=== PATIENT | female | born 1940 | race Hispanic/Latino ===

== ENCOUNTER 2016-08-25 17:03 | Inpatient (IN) | payer MEDICARE, BC ==
[2016-08-25] MEDS ORDERED: Sodium Chloride 0.9% 250 ML IV STA (18:06)
[2016-08-25] MEDS ORDERED: Iohexol 240 (50 ml) PO ONE (18:09)
--- NOTE | 2016-08-25 18:35 | ED PDOC ---
HPI: Abdomen Time Seen by Provider: 08/25/16 17:29 Chief Complaint (Nursing): Abdominal Pain Chief Complaint (Provider): Dehydration/Decreased PO Intake History Per: Patient History/Exam Limitations: no limitations Onset/Duration Of Symptoms: Days (x4) Outside of [place] travel?: No Current Symptoms Are (Timing): Still Present Associated Symptoms: Diarrhea (multiple episodes, watery/occasionally bloody (5 days [employer]OOFING APPLIC[employer], since resolved with minimal stool output since)), Loss Of Appetite ( has reportedly not eaten/drank anything x5d), Other (shortness of breath ( especially w/exertion), generalized weakness). denies: Vomiting, Chest Pain Additional Complaint(s): Lisseth Ma is a 75 year old female, with a past medical history inclusive of CAD (s/p coronary stent placement), HTN, COPD, type II diabetes and hypothyroidism, who presents to the ED on 08/25/16, as per the recommendation of her PMD Dr. Decker, for the evaluation/treatment of possible dehydration. Patient reports that she has been experiencing both decreased appetite and PO intake over the past 4 days, stating that symptoms had initially began 5 days ago with a fever and multiple episodes of watery and occasionally bloody diarrhea. While fever and diarrhea have since resolved, patient has had minimal stool output since and has not had anything to eat/ drink since symptom onset. Associated nausea and generalized weakness also reported in addition to some shortness of breath, especially upon exertion. Denies chest pain, vomiting, urinary complaints or additional episodes of bloody stool. 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 PMD: Evaristo Decker Past Medical History Reviewed: Historical Data, Nursing Documentation, Vital Signs Vital Signs: Last Vital Signs Temp 97.5 F L 08/28/16 12:27 Pulse 68 08/28/16 12:27 Resp 18 08/28/16 12:27 BP 148/75 08/28/16 12:27 Pulse Ox 97 08/28/16 12:27 - Medical History PMH: CAD, COPD, Diabetes (type II), HTN, Hypothyroidism - Surgical History Surgical History: Coronary Stent - Family History Family History: States: Diabetes, Hypertension - Social History Current smoker - smoking cessation education provided: No Alcohol: None Drugs: Denies - Home Medications Home Medications: Ambulatory Orders Medication Instructions Recorded Amlodipine Bes/Olmesartan Med 1 tab PO DAILY 08/25/16 [Amlodipine-Olmesartan 10-40 mg] Ergocalciferol (Vitamin D2) 1 cap PO QWK 08/25/16 [Vitamin D2] Famotidine [Pepcid] 40 mg PO DAILY 08/25/16 Ferrous Sulfate 325 mg PO BID 08/25/16 Fluticasone/Vilanterol [Breo 1 puff INH DAILY 08/25/16 Ellipta 200-25 Mcg INH] Levothyroxine [Synthroid] 25 mcg PO DAILY 08/25/16 Simvastatin [Zocor] 20 mg PO DAILY 08/25/16 Dabigatran [Pradaxa] 150 mg PO BID #60 cap 08/28/16 diltiaZEM [Cardizem] 30 mg PO BID #60 tab 08/28/16 - Allergies Allergies/Adverse Reactions: Allergies Allergy/AdvReac Type Severity Reaction Status Date / Time No Known Allergies Allergy Verified 08/25/16 17:14 Review of Systems ROS Statement: Except As Marked, All Systems Reviewed And Found Negative Constitutional: Positive for: Fever (5 days ago, since resolved), Weakness ( generalized) Cardiovascular: Negative for: Chest Pain Respiratory: Positive for: Shortness of Breath, SOB with Exertion Gastrointestinal: Positive for: Nausea, Diarrhea (multiple episodes, watery and ocasionally bloody, since resolved and since has had minimal stool output), Other (decreased appetite/PO intake). Negative for: Vomiting Genitourinary Female: Negative for: Dysuria, Frequency, Hematuria Physical Exam - Reviewed Nursing Documentation Reviewed: Yes Vital Signs Reviewed: Yes - Physical Exam Appears: Positive for: Non-toxic, No Acute Distress (tired appearing) Head Exam: Positive for: ATRAUMATIC, NORMOCEPHALIC Skin: Positive for: Warm, Dry, Pallor Eye Exam: Positive for: Normal appearance, PERRL ENT: Positive for: Pharynx Is (clear), Other (tacky mucous membranes) Cardiovascular/Chest: Positive for: Edema (b/l LE, nonpitting), Irregularly Irregular (tachycardic). Negative for: Murmur Respiratory: Positive for: Rhonchi (faint/diffuse b/l). Negative for: Respiratory Distress Gastrointestinal/Abdominal: Positive for: Normal Exam, Soft. Negative for: Tenderness ((-) Foster's/McBurney's), Mass, Guarding, Rebound Extremity: Positive for: Normal ROM Neurologic/Psych: Positive for: Alert, Oriented - Laboratory Results Result Diagrams: 08/25/16 18:15 08/25/16 18:15 - ECG ECG Rhythm: Positive for: Atrial Fibrillation (w/RVR), Right Bundle Branch Block Rate: 123 O2 Sat by Pulse Oximetry: 98 (RA) Pulse Ox Interpretation: Normal - Critical Care Total Time (In Min): 30 Documented Critical Care: Time excludes all time spent performint seperately billable procedures Medical Decision Making Medical Decision Makin:29 EKG shows atrial fibrillation at 123bpm with RVR and RBBB. Discussed case with Dr. Decker, patient has no previous history of a-fib. Initial Impression: new onset a-fib, abdominal discomfort, dehydration Differential diagnoses include but are not limited to mesenteric ischemia, CHF, electrolyte abnormality, ACS, colitis Initial Plan: * CT A/P w/PO contrast only * CXR * Blood Type/Screen * Labs * Lactic Acid, Plasma * Lipase * Magnesium * Phosphorus * Troponin I * PTT * PT * Glucose/Blood/POC * Udip * Urinalysis * Blood Culture * IV NS 250ml at 250mls/hr * Reevaluation Patient will be hospitalized, pending results of ED workup. Trop negative. Probnp elevated. Otherwise no clinically significant lab abnormalities. Pt's heart rate improved. ELIDA pt and family findings and plan of care ELIDA Decker again and Dr Terry Lozenge Maker. Scribe Attestation: Documented by Latonya Cabrera, acting as a scribe for Dia Parsons MD. Provider Scribe Attestation: All medical record entries made by the Scribe were at my direction and personally dictated by me. I have reviewed the chart and agree that the record accurately reflects my personal performance of the history, physical exam, medical decision making, and the department course for this patient. I have also personally directed, reviewed, and agree with the discharge instructions and disposition. Disposition - Clinical Impression Clinical Impression: Atrial fibrillation Counseled Patient/Family Regarding: Studies Performed, Diagnosis - Disposition Disposition Time: 17:30 Condition: FAIR - Pt Status Changed To: Hospital Disposition Of: Inpatient - Admit Certification Admit to Inpatient:: After my assessment, the patient will require hospitalization for at least two midnights. This is because of the severity of symptoms shown, intensity of services needed, and/or the medical risk in this patient being treated as an outpatient. - POA Present On Arrival: None
[2016-08-25 18:39] LABS: BASO % 0.5 % (0.0-2.0); EOS # 0.2 K/uL (0.0-0.7); EOS % 2.4 % (0.0-4.0); HEMATOCRIT 49.5 % (34.0-47.0); LYMPH # 1.1 K/uL (1.0-4.3); LYMPH % 13.5 % (20.0-40.0); MEAN CELL VOLUME 90.1 fl (81.0-99.0); MEAN CORPUSCULAR HEMOGLOBIN 29.2 pg (27.0-31.0); MEAN CORPUSCULAR HGB CONC 32.4 g/dL (33.0-37.0); MEAN PLATELET VOLUME 8.8 fl (7.2-11.7); MONO # 0.5 K/uL (0.0-0.8); MONO % 6.4 % (0.0-10.0); NEUT # 6.4 K/uL (1.8-7.0); NEUT % 77.2 % (50.0-75.0); NRBC % 0.3 % (0.0-0.0); RED CELL DISTRIBUTION WIDTH 14.3 % (11.5-14.5); WHITE BLOOD COUNT 8.4 K/uL (4.8-10.8)
[2016-08-25 18:56] LABS: ALKALINE PHOSPHATASE 63 U/L (38-126); ALT/SGPT 32 U/L (9-52); AST/SGOT 17 U/L (14-36); BILIRUBIN,TOTAL 0.6 mg/dl (0.2-1.3); BLOOD UREA NITROGEN 20 mg/dl (7-17); CALCIUM 9.1 mg/dL (8.4-10.2); CARBON DIOXIDE 23 mmol/L (22-30); CHLORIDE 100 mmol/L (98-107); GFR AFRICAN-AMERICAN > 60; GLUCOSE,RANDOM 135 mg/dL (65-105); LIPASE 51 U/L (23-300); MAGNESIUM 1.8 MG/DL (1.6-2.3); PARTIAL THROMBOPLASTIN TIME 24.6 SECONDS (23.3-32.5); PHOSPHOROUS 3.7 mg/dl (2.5-4.5); SODIUM 133 mmol/l (132-148); TOTAL PROTEIN 6.8 G/DL (6.3-8.2)
[2016-08-25] MEDS ORDERED: Iohexol 240 (50 ml) ONE (19:07)
--- NOTE | 2016-08-25 22:08 | CT ---
EXAM: CT Abdomen and Pelvis With Intravenous Contrast. CLINICAL HISTORY: 75 years old, female; Pain; Abdominal pain; Generalized; Prior surgery; Surgery date: 6+ months; Surgery type: Hysterectomy. Ca vulva; Additional info: Abd pain dehydration TECHNIQUE: Axial computed tomography images of the abdomen and pelvis with intravenous contrast. This CT exam was performed using one or more of the following dose reduction techniques: automated exposure control, adjustment of the mA and/or kV according to patient size, and/or use of iterative reconstruction technique. Coronal and sagittal reformatted images were created and reviewed. COMPARISON: No relevant prior studies available. FINDINGS: Lower thorax: Small pericardial effusion. Mild atelectasis/scarring. RIGHT lower lobe calcified granuloma. Small hiatal hernia. ABDOMEN: Liver: Fatty infiltration. Gallbladder and bile ducts: No calcified stones. No ductal dilation. Pancreas: No ductal dilation. No mass. Spleen: No splenomegaly. Adrenals: Mild hypertrophy of adrenal glands. Kidneys and ureters: Few probable renal cysts. Few too small to characterize lesions within kidneys. No renal calculi. No hydronephrosis. Stomach and bowel: Scattered diverticula within colon. Moderate mural thickening of distal transverse, descending, proximal sigmoid colon. Mild stranding within adjacent fat. No obstruction. Appendix: No findings to suggest acute appendicitis. PELVIS: Bladder: Unremarkable. Reproductive: Hysterectomy. ABDOMEN and PELVIS: Intraperitoneal space: No significant fluid collection. No free air. Bones/joints: Degenerative changes of spine. No acute fracture. Soft tissues: 3.0 x 1.6 x 1.8 cm soft tissue nodule LEFT anterior pelvic wall. Vasculature: Moderate atherosclerotic disease of visualized arteries. 4.1 cm infrarenal abdominal aortic aneurysm. No rupture. Lymph nodes: No pathologically enlarged lymph nodes. IMPRESSION: 1. Colitis, nonspecific. Consider inflammatory, infectious, or ischemic etiologies. 2. Abdominal aortic aneurysm. Followup as warranted. 3. Soft tissue nodule LEFT anterior pelvic wall. Clinical correlation is needed. 4. Incidental/non-acute findings are described above.
[2016-08-26 00:21] LABS: RBC URINE 3 /hpf (0-3); URINE BACTERIA RARE (<OCC); URINE BILIRUBIN NEGATIVE (NEGATIVE); URINE BLOOD SMALL (NEGATIVE); URINE COLOR YELLOW (YELLOW); URINE GLUCOSE (UA) NEG (Normal); URINE KETONE NEGATIVE (NEGATIVE); URINE LEUKOCYTE ESTERASE LARGE Leu/uL (Negative); URINE PROTEIN NEGATIVE (NEGATIVE); URINE UROBILINOGEN 0.2-1.0 mg/dL (0.2-1.0); WBC URINE 29 /hpf (0-5)
[2016-08-26] MEDS ORDERED: Enoxaparin 40 mg Syringe SC SCH (09:00)
[2016-08-26] MEDS: Levothyroxine 25 MCG TAB PO SCH (09:51)
--- NOTE | 2016-08-26 10:50 | RAD ---
HISTORY: sob COMPARISON: 2007 FINDINGS: LUNGS: No active pulmonary disease. PLEURA: No significant pleural effusion identified, no pneumothorax apparent. CARDIOVASCULAR: Heart is normal in size. There is atherosclerotic change of the aorta without aneurysmal dilatation. No CHF is seen. OSSEOUS STRUCTURES: No significant abnormalities. VISUALIZED UPPER ABDOMEN: Normal. OTHER FINDINGS: None. IMPRESSION: No focal infiltrate. No CHF. Limited exam due to underexposure.
--- NOTE | 2016-08-26 12:08 | CP.PCM.CON ---
History of Present Illness - History of Present Illness History of Present Illness: CC: Weakness. HPI: This is a pleasant 75 year old female with a PMH of CAD, HTN, DM and COPD who is admitted by her PMD for dehydration. She was evaluated by Dr. Decker earlier this week for several days of diarrhea, weakness, fatigue and dyspnea and was advised admission and workup given her dehydrated condition. She was noted to have new onset atrial fibrillation with RVR and IV cardizem was started for rate control. An ECG revealed afib at 123 BPM, RBBB, troponins negative x2 and an Echo revealed normal LVEF, moderate , INDY=1.34 cm2, peak gradient 24 mmHg, mean 15 mmHg. The patient denies chest pain or palpitation but has lower extremity edema. She has been compliant with her medications and diet. Review of Systems - Constitutional Constitutional: Fatigue, Lethargy, Weakness - EENT Additional comments: Negative. - Cardiovascular Cardiovascular: Dyspnea, Dyspnea on Exertion - Respiratory Respiratory: Dyspnea, Dyspnea on Exertion - Gastrointestinal Gastrointestinal: Diarrhea - Genitourinary Additional comments: Negative. - Musculoskeletal Musculoskeletal: Muscle Weakness, Myalgias - Integumentary Integumentary: Swelling - Neurological Additional comments: Negative. - Psychiatric Additional comments: Negative. - Endocrine Endocrine: Fatigue - Hematologic/Lymphatic Additional comments: Negative. Past Patient History - Past Medical History & Family History Past Medical History?: Yes - Past Social History Smoking Status: Former Smoker - CARDIAC Hx Cardiac Disorders: Yes Hx Circulatory Problems: Yes Hx Hypercholesterolemia: Yes Hx Hypertension: Yes - PULMONARY Hx Asthma: Yes Hx Chronic Obstructive Pulmonary Disease (COPD): Yes - NEUROLOGICAL Hx Neurological Disorder: No - HEENT Hx HEENT Problems: No - RENAL Hx Chronic Kidney Disease: No - ENDOCRINE/METABOLIC Hx Endocrine Disorders: Yes Hx Diabetes Mellitus Type 2: Yes - HEMATOLOGICAL/ONCOLOGICAL Hx Blood Disorders: Yes - MUSCULOSKELETAL/RHEUMATOLOGICAL Hx Falls: No - GASTROINTESTINAL Hx Gastrointestinal Disorders: No - GENITOURINARY/GYNECOLOGICAL Hx Cervical Cancer: Yes - PSYCHIATRIC Hx Substance Use: No - SURGICAL HISTORY Hx Cardiac Catheterization: Yes Hx Coronary Stent: Yes Hx Hysterectomy: Yes - ANESTHESIA Hx Anesthesia: Yes Hx Anesthesia Reactions: No Meds Allergies/Adverse Reactions: Allergies Allergy/AdvReac Type Severity Reaction Status Date / Time No Known Allergies Allergy Verified 08/25/16 17:14 - Medications Medications: Current Medications Aspirin (Aspirin Chewable) 81 mg PO DAILY [facility] Last Admin: 08/26/16 09:47 Dose: 81 mg Atorvastatin Calcium (Lipitor) 10 mg PO DAILY [facility] Last Admin: 08/26/16 09:48 Dose: 10 mg Clopidogrel Bisulfate (Plavix) 75 mg PO DAILY [facility] Last Admin: 08/26/16 09:50 Dose: 75 mg Enoxaparin Sodium (Lovenox) 40 mg SC DAILY [facility] PRN Reason: Protocol Last Admin: 08/26/16 09:50 Dose: 40 mg Ergocalciferol (Drisdol 50,000 Intl Units Cap) 1 cap PO QWK [facility] Ferrous Sulfate (Feosol) 325 mg PO BID [facility] Last Admin: 08/26/16 09:47 Dose: 325 mg Diltiazem HCl 125 mg/ Sodium (Chloride) 125 mls @ 5 mls/hr IV .Q24H ONE; 5 MG/ HR PRN Reason: Protocol Stop: 08/26/16 19:28 Last Admin: 08/25/16 21:16 Dose: 5 mls/hr Levothyroxine Sodium (Synthroid) 25 mcg PO DAILY@0630 [facility] Last Admin: 08/26/16 09:51 Dose: 25 mcg Metoprolol Tartrate (Lopressor) 25 mg PO BID [facility] Last Admin: 08/26/16 09:48 Dose: 25 mg Physical Exam - Constitutional Appears: Well, No Acute Distress - Head Exam Head Exam: NORMAL INSPECTION - Eye Exam Eye Exam: EOMI, Normal appearance - ENT Exam ENT Exam: Mucous Membranes Moist - Neck Exam Neck exam: Positive for: Normal Inspection - Respiratory Exam Respiratory Exam: Clear to Auscultation Bilateral, NORMAL BREATHING PATTERN - Cardiovascular Exam Cardiovascular Exam: REGULAR RHYTHM, +S1, +S2, Systolic Murmur - GI/Abdominal Exam GI & Abdominal Exam: Normal Bowel Sounds, Soft - Rectal Exam Rectal Exam: Deferred - Back Exam Back exam: NORMAL INSPECTION - Neurological Exam Neurological exam: Alert, CN II-XII Intact, Oriented x3 - Psychiatric Exam Psychiatric exam: Normal Affect, Normal Mood - Skin Skin Exam: Dry, Intact, Normal Color, Warm Results - Vital Signs Recent Vital Signs: Last Vital Signs Temp 98.5 F 08/26/16 09:28 Pulse 68 08/26/16 09:48 Resp 20 08/26/16 09:28 BP 123/81 08/26/16 09:48 Pulse Ox 97 08/26/16 09:28 - Labs Result Diagrams: 08/25/16 18:15 08/25/16 18:15 Labs: Laboratory Results - last 24 hr 08/25/16 08/26/16 08/26/16 23:40 05:43 06:54 POC Glucose (mg/dL) 138 H Troponin I 0.0190 Urine Color Yellow Urine Clarity Slighty-cloudy Urine pH 5.0 Ur Specific [place] 1.015 Urine Protein Negative Urine Glucose (UA) Neg Urine Ketones Negative Urine Blood Small Urine Nitrate Negative Urine Bilirubin Negative Urine Urobilinogen 0.2-1.0 Ur Leukocyte Esterase Large Urine RBC (Auto) 3 Urine Microscopic WBC 29 H Ur Squamous Epith Cells 6 H Urine Bacteria Rare Assessment & Plan - Assessment and Plan (Free Text) Assessment: New onset atrial fibrillation, now rate and rhythm controlled. Dehydration. Diarrhea. Hypertension. CAD, asymptomatic. Moderate aortic stenosis. DM. Dyslipidemia. COPD. Plan: Discontinue IV cardizem. Start PO cardizem. Discontinue beta jia given COPD. Pradaxa given high CHADS2 score. Monitor telemetry. Discontinue aspirin and clopidogrel. Physical therapy. Case d/w Dr. Decker who agrees with the above recommendations. - Date & Time Date: 08/26/16 Time: 18:39
[2016-08-27] MEDS: Levothyroxine 25 MCG TAB PO SCH (06:29)
--- NOTE | 2016-08-27 06:55 | CARD ---
APPROVED REPORT EXAM: Two-dimensional and M-mode echocardiogram with Doppler and color Doppler. Other Information Quality : AverageRhythm : Atrial Fibrillation INDICATION Atrial Fibrillation 2D DIMENSIONS IVSd1.09 (0.7-1.1cm)LVDd4.57 (3.9-5.9cm) LVOT Diameter2.09 (1.8-2.4cm)PWd0.94 (0.7-1.1cm) IVSs1.59 (0.8-1.2cm)LVDs3.39 (2.5-4.0cm) FS (%) 25.9 %PWs1.29 (0.8-1.2cm) M-Mode DIMENSIONS Left Atrium (MM)3.53 (2.5-4.0cm)IVSd1.09 (0.7-1.1cm) Aortic Root3.00 (2.2-3.7cm)LVDd5.06 (4.0-5.6cm) Aortic Cusp Exc.0.84 (1.5-2.0cm)PWd0.94 (0.7-1.1cm) IVSs1.56 cmFS (%) 33 % LVDs3.38 (2.0-3.8cm)PWs1.78 cm Aortic Valve AoV Peak Oufqznru754.4cm/sAoV VTI52.6cmAO Peak GR.24mmHg LVOT Peak Lbewxhoj41.3cm/sLVOT VTI20.55cmAO Mean GR.16mmHg INDY (VMAX)0.54dy5YMI (VTI)0.63cm2 Mitral Valve MV E Gxyknrbx96.2cm/sMV DECEL GBGT888qmCG A Enjmbikz287.2cm/s MV DRD39cyV/A ratio0.9MVA (PHT)2.56cm2 TDI E/Lateral E'0.0E/Medial E'0.0 LEFT VENTRICLE The left ventricle is normal size. There is normal left ventricular wall thickness. The left ventricular function is normal. The left ventricular ejection fraction is 55% There is normal LV segmental wall motion. Transmitral Doppler flow pattern is Grade I-abnormal relaxation pattern. No left ventricle thrombus noted on this study. There is no ventricular septal defect visualized. There is no left ventricular aneurysm. There is no mass noted in the left ventricle. RIGHT VENTRICLE The right ventricle is normal size. There is normal right ventricular wall thickness. The right ventricular systolic function is normal. ATRIA The left atrium size is normal. The right atrium size is normal. The interatrial septum is intact with no evidence for an atrial septal defect. AORTIC VALVE The aortic valve is moderately calcified. There is trace aortic regurgitation. There is mild valvular aortic stenosis. Calculated aortic valve area is 1.2 cm2 with maximum pressure gradient of 26 mmHg There is no aortic valvular vegetation. MITRAL VALVE The mitral valve is normal in structure and function. There is no evidence of mitral valve prolapse. There is no mitral valve stenosis. Mitral regurgitation is mild. TRICUSPID VALVE The tricuspid valve is normal in structure and function. There is no tricuspid valve regurgitation noted. There is no tricuspid valve prolapse or vegetation. There is no tricuspid valve stenosis. PULMONIC VALVE The pulmonary valve is normal in structure and function. There is no pulmonic valvular regurgitation. There is no pulmonic valvular stenosis. GREAT VESSELS The aortic root is normal in size. The ascending aorta is normal in size. The IVC is normal in size and collapses >50% with inspiration. PERICARDIAL EFFUSION The pericardium appears normal. There is no pleural effusion. <Conclusion> Normal LV Systolic Function Mild Aortic Stenosis Trace Aortic Insufficiency Mild Mitral Regurgitation
[2016-08-27] MEDS ORDERED: Ergocalciferol 50,000 Intl Units Cap PO SCH (22:00)
[2016-08-28 05:20] VITALS: RESP 18
[2016-08-28] MEDS: Levothyroxine 25 MCG TAB PO SCH (05:55)
[2016-08-28] MEDS ORDERED: diltiaZEM 120 mg/24 Hours CD Cap PO SCH (09:00)
--- NOTE | 2016-08-28 10:05 | CARD ---
APPROVED REPORT EKG Measurement Heart [id number] <Conclusion> Atrial fibrillation with rapid ventricular response with premature ventricular or aberrantly conducted complexes Right bundle branch block Abnormal ECG
--- NOTE | 2016-08-28 10:34 | CP.PCM.HP ---
History of Present Illness - History of Present Illness History of Present Illness: this is a 75 y/o female who was seen in my office yesterday and was noted to be very dehydrated and noted tachycardia. At the ER she was noted to hav rapid atrial fibrillation. She has a hx of CAd HTN DM 2., COPD. She claims that over she had 1 day of watery diarrhea on but had minimal intake since then. She progressively became so weak hence sought medical attention at the office but advised hospitalization. Present on Admission - Present on Admission Any Indicators Present on Admission: No History of DVT/PE: No History of Uncontrolled Diabetes: No Urinary Catheter: No Decubitus Ulcer Present: No Review of Systems - Gastrointestinal Gastrointestinal: Belching, Diarrhea Past Patient History - Past Medical History & Family History Past Medical History?: Yes - Past Social History Smoking Status: Former Smoker - CARDIAC Hx Cardiac Disorders: Yes Hx Circulatory Problems: Yes Hx Hypercholesterolemia: Yes Hx Hypertension: Yes - PULMONARY Hx Asthma: Yes Hx Chronic Obstructive Pulmonary Disease (COPD): Yes - NEUROLOGICAL Hx Neurological Disorder: No - HEENT Hx HEENT Problems: No - RENAL Hx Chronic Kidney Disease: No - ENDOCRINE/METABOLIC Hx Endocrine Disorders: Yes Hx Diabetes Mellitus Type 2: Yes - HEMATOLOGICAL/ONCOLOGICAL Hx Blood Disorders: Yes - MUSCULOSKELETAL/RHEUMATOLOGICAL Hx Falls: No - GASTROINTESTINAL Hx Gastrointestinal Disorders: No - GENITOURINARY/GYNECOLOGICAL Hx Cervical Cancer: Yes - PSYCHIATRIC Hx Substance Use: No - SURGICAL HISTORY Hx Cardiac Catheterization: Yes Hx Coronary Stent: Yes Hx Hysterectomy: Yes - ANESTHESIA Hx Anesthesia: Yes Hx Anesthesia Reactions: No Meds Allergies/Adverse Reactions: Allergies Allergy/AdvReac Type Severity Reaction Status Date / Time No Known Allergies Allergy Verified 08/25/16 17:14 Physical Exam - Head Exam Head Exam: NORMAL INSPECTION - Eye Exam Additional comments: sunken eyeballs. - Respiratory Exam Respiratory Exam: NORMAL BREATHING PATTERN - Cardiovascular Exam Cardiovascular Exam: Irregular Rhythm - GI/Abdominal Exam GI & Abdominal Exam: Normal Bowel Sounds - Neurological Exam Neurological exam: CN II-XII Intact, Oriented x3 Results - Vital Signs Recent Vital Signs: Last Vital Signs Temp 97.9 F 08/28/16 08:20 Pulse 59 L 08/28/16 09:00 Resp 18 08/28/16 08:20 BP 99/69 L 08/28/16 08:50 Pulse Ox 95 08/28/16 08:20 - Labs Result Diagrams: 08/25/16 18:15 08/25/16 18:15 Labs: Laboratory Results - last 24 hr 08/27/16 08/27/16 08/27/16 11:38 17:01 21:07 POC Glucose (mg/dL) 181 H 113 H 137 H 08/28/16 05:53 POC Glucose (mg/dL) 122 H Assessment & Plan (1) Dehydration Status: Acute (2) Atrial fibrillation Status: Acute (3) Diabetes mellitus type 2 in obese Status: Acute (4) COPD (chronic obstructive pulmonary disease) Status: Acute (5) Hypertension Status: Acute (6) Coronary artery disease Status: Acute - Assessment and Plan (Free Text) Plan: Hydrate cardiology eval cardizem metoprolol. cont meds check labs. telemetry
--- NOTE | 2016-08-28 10:42 | CP.PCM.PN ---
Subjective - Date & Time of Evaluation Date of Evaluation: 08/27/16 Time of Evaluation: 10:39 - Subjective Subjective: patient is doing better Looks more hydrated has no fever Has no chest pain. Converted to normal sinus Objective - Vital Signs/Intake and Output Vital Signs (last 24 hours): Temp Pulse Resp BP Pulse Ox 97.9 F 59 L 18 99/69 L 95 08/28/16 08:20 08/28/16 09:00 08/28/16 08:20 08/28/16 08:50 08/28/16 08:20 - Medications Medications: Current Medications Atorvastatin Calcium (Lipitor) 10 mg PO DAILY [facility] Last Admin: 08/28/16 08:50 Dose: 10 mg Dabigatran (Pradaxa) 150 mg PO BID [facility] PRN Reason: Protocol Last Admin: 08/28/16 08:50 Dose: 150 mg Diltiazem HCl (Cardizem Cd) 120 mg PO DAILY [facility] Last Admin: 08/28/16 08:50 Dose: Not Given Ergocalciferol (Drisdol 50,000 Intl Units Cap) 1 cap PO QWK [facility] Last Admin: 08/28/16 08:50 Dose: 1 cap Ferrous Sulfate (Feosol) 325 mg PO BID [facility] Last Admin: 08/28/16 08:50 Dose: 325 mg Levothyroxine Sodium (Synthroid) 25 mcg PO DAILY@0630 [facility] Last Admin: 08/28/16 05:55 Dose: 25 mcg Ondansetron HCl (Zofran Inj) 4 mg IVP Q6 PRN PRN Reason: Nausea/Vomiting Last Admin: 08/27/16 18:58 Dose: 4 mg Sennosides (Senokot Tab) 17.2 mg PO HS [facility] Last Admin: 08/27/16 21:04 Dose: 17.2 mg - Labs Labs: PT 11.1 SECONDS (9.6-11.2) 08/25/16 18:15 INR 1.07 (0.92-1.08) 08/25/16 18:15 APTT 24.6 SECONDS (23.3-32.5) 08/25/16 18:15 - Head Exam Head Exam: NORMAL INSPECTION - Eye Exam Eye Exam: Normal appearance - ENT Exam ENT Exam: Mucous Membranes Moist - Respiratory Exam Respiratory Exam: Clear to Ausculation Bilateral - Cardiovascular Exam Cardiovascular Exam: REGULAR RHYTHM - Neurological Exam Neurological Exam: CN II-XII Intact, Oriented x3 - Psychiatric Exam Psychiatric exam: Normal Mood Assessment and Plan (1) Dehydration Status: Acute (2) Atrial fibrillation Status: Acute (3) Diabetes mellitus type 2 in obese Status: Acute (4) COPD (chronic obstructive pulmonary disease) Status: Acute (5) Hypertension Status: Acute (6) Coronary artery disease Status: Acute - Assessment and Plan (Free Text) Plan: Cont meds Cont tx Cont hydration cardizem follow up cardiology
--- NOTE | 2016-08-28 10:44 | CP.PCM.DIS ---
Provider - Provider Date of Admission: 08/25/16 21:54 Attending physician: Evaristo Decker MD Time Spent in preparation of Discharge (in minutes): 45 Diagnosis - Discharge Diagnosis (1) Dehydration Status: Acute (2) Atrial fibrillation Status: Acute (3) Diabetes mellitus type 2 in obese Status: Acute (4) COPD (chronic obstructive pulmonary disease) Status: Acute (5) Hypertension Status: Acute (6) Coronary artery disease Status: Acute Hospital Course - Lab Results Lab Results: Micro Results 08/25/16 23:40 Urine Urine Culture - Final No Growth (<1,000 CFU/ML) Most Recent Lab Values WBC 8.4 K/uL (4.8-10.8) 08/25/16 18:15 RBC 5.49 Mil/uL (3.80-5.20) H 08/25/16 18:15 Hgb 16.0 g/dL (12.0-16.0) 08/25/16 18:15 Hct 49.5 % (34.0-47.0) H 08/25/16 18:15 MCV 90.1 fl (81.0-99.0) 08/25/16 18:15 MCH 29.2 pg (27.0-31.0) 08/25/16 18:15 MCHC 32.4 g/dL (33.0-37.0) L 08/25/16 18:15 RDW 14.3 % (11.5-14.5) 08/25/16 18:15 Plt Count 188 K/uL (130-400) 08/25/16 18:15 MPV 8.8 fl (7.2-11.7) 08/25/16 18:15 Neut % (Auto) 77.2 % (50.0-75.0) H 08/25/16 18:15 Lymph % (Auto) 13.5 % (20.0-40.0) L 08/25/16 18:15 [place] % (Auto) 6.4 % (0.0-10.0) 08/25/16 18:15 Eos % (Auto) 2.4 % (0.0-4.0) 08/25/16 18:15 Baso % (Auto) 0.5 % (0.0-2.0) 08/25/16 18:15 Neut # 6.4 K/uL (1.8-7.0) 08/25/16 18:15 Lymph # 1.1 K/uL (1.0-4.3) 08/25/16 18:15 [place] # 0.5 K/uL (0.0-0.8) 08/25/16 18:15 Eos # 0.2 K/uL (0.0-0.7) 08/25/16 18:15 Baso # 0.0 K/uL (0.0-0.2) 08/25/16 18:15 PT 11.1 SECONDS (9.6-11.2) 08/25/16 18:15 INR 1.07 (0.92-1.08) 08/25/16 18:15 APTT 24.6 SECONDS (23.3-32.5) 08/25/16 18:15 Sodium 133 mmol/l (132-148) 08/25/16 18:15 Potassium 4.0 MMOL/L (3.6-5.0) 08/25/16 18:15 Chloride 100 mmol/L (98-107) 08/25/16 18:15 Carbon Dioxide 23 mmol/L (22-30) 08/25/16 18:15 Anion Gap 13 (10-20) 08/25/16 18:15 BUN 20 mg/dl (7-17) H 08/25/16 18:15 Creatinine 1.0 mg/dL (0.7-1.2) 08/25/16 18:15 Est GFR ( Amer) > 60 08/25/16 18:15 Est GFR (Non-Af Amer) 54 08/25/16 18:15 POC Glucose (mg/dL) 122 mg/dL (65-110) H 08/28/16 05:53 Random Glucose 135 mg/dL (65-105) H 08/25/16 18:15 Lactic Acid 2.1 MMOL/L (0.7-2.1) 08/25/16 18:15 Calcium 9.1 mg/dL (8.4-10.2) 08/25/16 18:15 Phosphorus 3.7 mg/dl (2.5-4.5) 08/25/16 18:15 Magnesium 1.8 MG/DL (1.6-2.3) 08/25/16 18:15 Total Bilirubin 0.6 mg/dl (0.2-1.3) 08/25/16 18:15 AST 17 U/L (14-36) 08/25/16 18:15 ALT 32 U/L (9-52) 08/25/16 18:15 Alkaline Phosphatase 63 U/L (38-126) 08/25/16 18:15 Troponin I < 0.0120 ng/mL (0.00-0.120) 08/26/16 14:10 NT-Pro-B Natriuret Pep 3050 pg/ml (0-900) H 08/25/16 18:15 Total Protein 6.8 G/DL (6.3-8.2) 08/25/16 18:15 Albumin 3.5 g/dL (3.5-5.0) 08/25/16 18:15 Globulin 3.3 gm/dL (2.2-3.9) 08/25/16 18:15 Albumin/Globulin Ratio 1.0 (1.0-2.1) 08/25/16 18:15 Lipase 51 U/L (23-300) 08/25/16 18:15 Urine Color Yellow (YELLOW) 08/25/16 23:40 Urine Clarity Slighty-cloudy (Clear) 08/25/16 23:40 Urine pH 5.0 (5.0-8.0) 08/25/16 23:40 Ur Specific [place] 1.015 (1.003-1.030) 08/25/16 23:40 Urine Protein Negative mg/dL (NEGATIVE) 08/25/16 23:40 Urine Glucose (UA) Neg mg/dL (Normal) 08/25/16 23:40 Urine Ketones Negative mg/dL (NEGATIVE) 08/25/16 23:40 Urine Blood Small (NEGATIVE) 08/25/16 23:40 Urine Nitrate Negative (NEGATIVE) 08/25/16 23:40 Urine Bilirubin Negative (NEGATIVE) 08/25/16 23:40 Urine Urobilinogen 0.2-1.0 mg/dL (0.2-1.0) 08/25/16 23:40 Ur Leukocyte Esterase Large Myah/uL (Negative) 08/25/16 23:40 Urine RBC (Auto) 3 /hpf (0-3) 08/25/16 23:40 Urine Microscopic WBC 29 /hpf (0-5) H 08/25/16 23:40 Ur Squamous Epith Cells 6 /hpf (0-5) H 08/25/16 23:40 Urine Bacteria Rare (<OCC) 08/25/16 23:40 Blood Type O POSITIVE 08/25/16 18:15 Blood Type Confirm O POSITIVE 08/25/16 18:45 Antibody Screen Negative 08/25/16 18:15 BBK History Checked No verified bt 08/25/16 18:15 - Hospital Course Hospital Course: this is a 89 y/o female with hx of HTn CAd DM 2 COPd who had an episode of diarrhea and was dehydrated. Seen at the office and advised ER eval where she was noted to be in rapid atrial fibrillation. cardiac enzymes were normal. Had no chest pain or SOB. Discharge Exam - Head Exam Head Exam: NORMAL INSPECTION - Eye Exam Eye Exam: Normal appearance - Respiratory Exam Respiratory Exam: NORMAL BREATHING PATTERN - Cardiovascular Exam Cardiovascular Exam: REGULAR RHYTHM - GI/Abdominal Exam GI & Abdominal Exam: Normal Bowel Sounds - Neurological Exam Neurological exam: CN II-XII Intact, Oriented x3 - Psychiatric Exam Psychiatric exam: Normal Mood Discharge Plan - Follow Up Plan Condition: FAIR Disposition: HOME/ ROUTINE Additional Instructions: continue cardizem hydrate follow up in 1 week Dc to home cont all other meds.
--- NOTE | 2016-08-28 11:59 | CP.PCM.PN ---
Subjective - Date & Time of Evaluation Date of Evaluation: 08/28/16 Time of Evaluation: 11:30 - Subjective Subjective: Reason for visit: Atrial fibrillation. Interval history: The patient is resting comfortably without dyspnea, chest pain or palpitations. She has improved with respect to her dyspnea and edema since admission. On telemetry the patient has remained in NSR. Objective - Vital Signs/Intake and Output Vital Signs (last 24 hours): Temp Pulse Resp BP Pulse Ox 97.9 F 68 18 148/72 95 08/28/16 08:20 08/28/16 11:42 08/28/16 08:20 08/28/16 11:42 08/28/16 08:20 - Medications Medications: Current Medications Atorvastatin Calcium (Lipitor) 10 mg PO DAILY [facility] Last Admin: 08/28/16 08:50 Dose: 10 mg Dabigatran (Pradaxa) 150 mg PO BID [facility] PRN Reason: Protocol Last Admin: 08/28/16 08:50 Dose: 150 mg Diltiazem HCl (Cardizem) 30 mg PO BID [facility] Last Admin: 08/28/16 11:42 Dose: 30 mg Ergocalciferol (Drisdol 50,000 Intl Units Cap) 1 cap PO QWK [facility] Last Admin: 08/28/16 08:50 Dose: 1 cap Ferrous Sulfate (Feosol) 325 mg PO BID [facility] Last Admin: 08/28/16 08:50 Dose: 325 mg Levothyroxine Sodium (Synthroid) 25 mcg PO DAILY@0630 [facility] Last Admin: 08/28/16 05:55 Dose: 25 mcg Ondansetron HCl (Zofran Inj) 4 mg IVP Q6 PRN PRN Reason: Nausea/Vomiting Last Admin: 08/27/16 18:58 Dose: 4 mg Sennosides (Senokot Tab) 17.2 mg PO HS [facility] Last Admin: 08/27/16 21:04 Dose: 17.2 mg - Labs Labs: PT 11.1 SECONDS (9.6-11.2) 08/25/16 18:15 INR 1.07 (0.92-1.08) 08/25/16 18:15 APTT 24.6 SECONDS (23.3-32.5) 08/25/16 18:15 - Constitutional Appears: Well, Non-toxic, No Acute Distress - Head Exam Head Exam: NORMAL INSPECTION, NORMOCEPHALIC - Eye Exam Eye Exam: Normal appearance - ENT Exam ENT Exam: Mucous Membranes Moist, Normal Exam - Neck Exam Neck Exam: Full ROM - Respiratory Exam Respiratory Exam: Clear to Ausculation Bilateral, NORMAL BREATHING PATTERN - Cardiovascular Exam Cardiovascular Exam: REGULAR RHYTHM, +S1, +S2, Murmur - GI/Abdominal Exam GI & Abdominal Exam: Soft - Rectal Exam Rectal Exam: Deferred - Extremities Exam Extremities Exam: Full ROM, Normal Inspection - Back Exam Back Exam: NORMAL INSPECTION - Neurological Exam Neurological Exam: Alert, Awake, Oriented x3 - Psychiatric Exam Psychiatric exam: Normal Affect, Normal Mood - Skin Skin Exam: Dry, Normal Color, Warm Assessment and Plan - Assessment and Plan (Free Text) Assessment: PAFIB HTN CAD COPD DM Dyslipidemia Plan: Continue CCB Pradaxa Continue present cardiac meds Outpatient follow up for
[2016-08-28 12:28] VITALS: BP 148/75; TEMP 97.5
[2016-08-29 15:30] VITALS: PULSE 123; O2SAT 98
== END 2016-08-28 14:30 | disposition home or self-care (01) | DRG 641 ==
LOC: H.ER 17:03 → H.ERHOLD 21:54 → H.TEL 23:40
PROVIDERS: ADMIT Family Medicine; ATTEND Family Medicine
DX: E86.0 Dehydration (principal); I48.91 Unspecified atrial fibrillation; J44.9 Chronic obstructive pulmonary disease, unspecified; E11.9 Type 2 diabetes mellitus without complications; I35.0 Nonrheumatic aortic (valve) stenosis; I10 Essential (primary) hypertension; I25.10 Atherosclerotic heart disease of native coronary artery without angina pectoris; E03.9 Hypothyroidism, unspecified; E78.5 Hyperlipidemia, unspecified; J45.909 Unspecified asthma, uncomplicated; E66.9 Obesity, unspecified; Z68.35 Body mass index [BMI] 35.0-35.9, adult; Z95.5 Presence of coronary angioplasty implant and graft; Z87.891 Personal history of nicotine dependence; Z85.41 Personal history of malignant neoplasm of cervix uteri; Z90.710 Acquired absence of both cervix and uterus